=== PATIENT | female | born 1970 | race Caucasian/White ===

== ENCOUNTER 2017-01-30 12:38 | Emergency (ER) | payer OTHER, BC ==
--- NOTE | 2017-01-30 12:51 | PDOC ---
Attending Attestation - Resident Resident Name: Petros Jeter - ED Attending Attestation I have performed the following: I have examined & evaluated the patient, The case was reviewed & discussed with the resident, I agree w/resident's findings & plan, Exceptions are as noted
[2017-01-30 13:03] VITALS: BP 141/68; PULSE 78; TEMP 98.6; BMI 23.6
[2017-01-30] MEDS ORDERED: hydrOXYzine PAMOATE 25 MG CAPSULE (FP) PO ONE ×2 (13:13→13:16)
[2017-01-30] MEDS ORDERED: KETOROLAC TROMETHAMINE 60 MG/2 ML VIAL IM ONE (13:13)
[2017-01-30] MEDS ORDERED: KETOROLAC TROMETHAMINE 60 MG/2 ML VIAL ONE (13:15)
--- NOTE | 2017-01-30 13:17 | PDOC ---
History of Present Illness - General Chief Complaint: Pain, Acute Stated Complaint: BACK PAIN Time Seen by Provider: 01/30/17 12:57 - History of Present Illness Initial Comments: 01/30/17 13:53 Chief complaint: Low back pain History of present illness: Patient strained her back several days ago assisting a patient at work. Minimal pain at the time, but over the ensuing few days has had increased pain and stiffness in the low back. Review of systems: No radiation of pain to the legs. No distal numbness tingling pain or weakness of the lower extremities. No bowel or bladder dysfunction. Past medical history: No history of back pain or injury. Currently healthy without active medical or surgical problems, on no medications other than ibuprofen for the current injury Social/family history no tobacco alcohol or drugs. Stable home and family. No unusual stress Physical exam: Alert and oriented well-developed well-nourished, comfortable with recumbency, pain and limited mobility due to back injury, however cheerful and cooperative Afebrile, vital signs normal HEENT clear Neck without tenderness or deformity, full range of motion without pain Chest clear CV regular without murmur rub or gallop Abdomen benign No CVAT LS spine: No point tenderness, deformity, or inflammation over the lumbosacral spine. There is maintenance of the normal lumbar lordosis. Straight leg raising is negative. There are no distal sensory or motor deficits. Pulses are full Impression: Low back strain, gradual inflammation, no sign of neurological impairment Plan: Symptomatic treatment rest and follow-up primary physician and back specialist as necessary. Past History - Past Medical History Allergies/Adverse Reactions: Allergies Allergy/AdvReac Type Severity Reaction Status Date / Time codeine [Codeine] Allergy Intermediate Hives Verified 01/30/17 12:40 Home Medications: Ambulatory Orders Hydroxyzine Pamoate [Vistaril -] 25 - 50 mg PO TID PRN #25 capsule 01/30/17 Ketorolac Tromethamine [Toradol] 10 mg PO Q6H #20 tablet 01/30/17 Anemia: No Asthma: No Cancer: No Cardiac Disorders: No CVA: No COPD: No CHF: No Dementia: No Diabetes: No GI Disorders: No Disorders: No HTN: No Hypercholesterolemia: No Liver Disease: No Suicide Attempt (Hx): No Seizures: No Thyroid Disease: No Other medical history: DENIES - Reproductive History Is Patient Now?: No (#): 2 Para: 2 - Immunization History Immunization Up to Date: Yes - Psycho/Social/Smoking Cessation Hx Anxiety: No Suicidal Ideation: No Smoking Status: No Smoking History: Never smoked Have you smoked in the past 12 months: No Number of Cigarettes Smoked Daily: 0 Information on smoking cessation initiated: No Hx Alcohol Use: No Drug/Substance Use Hx: No Substance Use Type: None Hx Substance Use Treatment: No *Physical Exam - Vital Signs Last Vital Signs Temp Pulse Resp BP Pulse Ox 98.6 F 78 16 141/68 99 01/30/17 12:40 01/30/17 12:40 01/30/17 12:40 01/30/17 12:40 01/30/17 12:40 Medical Decision Making - Medical Decision Making 01/30/17 13:52 Patient's pain is much improved. She is more mobile, ambulating adequately. Discharged with instructions with family member to follow-up as directed. *DC/Admit/Observation/Transfer Diagnosis at time of Disposition: Strain of muscle, fascia and tendon of lower back, initial encounter - Discharge Dispostion Disposition: HOME Condition at time of disposition: Improved Admit: No - Prescriptions Prescriptions: Ketorolac Tromethamine [Toradol] 10 mg PO Q6H #20 tablet Hydroxyzine Pamoate [Vistaril -] 25 - 50 mg PO TID PRN #25 capsule PRN Reason: pain, spasm, muscle tension - Referrals Referrals: Quang Cabrera MD [Staff Physician] - 1 week - Patient Instructions Printed Discharge Instructions: DI for Low Back Pain Additional Instructions: Avoid sitting, bending, and lifting. Gentle stretching and limited walking is recommended. See back specialist if no improvement in one week as directed. - Post Discharge Activity Work/School Note: Back to Work
== END 2017-01-30 14:32 | disposition home or self-care (01) ==
LOC: FER 12:38
PROC: 3E0233Z Introduction of Anti-inflammatory into Muscle, Percutaneous Approach (ICD-10-PCS; principal; 2017-01-30)
DX: S39.012A Strain of muscle, fascia and tendon of lower back, initial encounter (principal); X58.XXXA Exposure to other specified factors, initial encounter; Y93.89 Activity, other specified; Y92.89 Other specified places as the place of occurrence of the external cause; Y99.0 Civilian activity done for income or pay
CPT/HCPCS: 99283-25

== ENCOUNTER 2021-12-20 13:55 | Emergency (ER) | payer BC ==
[2021-12-20 14:03] VITALS: BP 143/87; PULSE 110; BMI 25.8
[2021-12-20] MEDS ORDERED: SODIUM CHLORIDE 0.9% 500 ML INFUS.BAG IV ONE (14:24)
[2021-12-20] MEDS ORDERED: KETOROLAC TROMETHAMINE 30 MG/1 ML VIAL IVPUSH ONE (14:24)
[2021-12-20] MEDS ORDERED: ACETAMINOPHEN 1000 MG/100 ML BAG IVPB ONE (14:26)
[2021-12-20] MEDS ORDERED: KETOROLAC TROMETHAMINE 30 MG/1 ML VIAL ONE (14:31)
[2021-12-20] MEDS ORDERED: ACETAMINOPHEN INJECTION 100 ML IVPB ONE (14:31)
[2021-12-20 15:19] LABS: EPI CELLS 15 /uL (0-25.1); HCG,QUALITATIVE URINE Negative; HYALINE CASTS 3 /uL (0-3.1); URINE APPEARANCE TURBID; URINE BACTERIA 4278 /uL (0-1359); URINE BILIRUBIN NEGATIVE (NEGATIVE); URINE COLOR YELLOW; URINE GLUCOSE (UA) NEGATIVE (NEGATIVE); URINE KETONE NEGATIVE (NEGATIVE); URINE LEUK ESTERASE 3+ (NEGATIVE); URINE NITRITE NEGATIVE (NEGATIVE); URINE PROTEIN 2+ (NEGATIVE); URINE RBC 102 /uL (0-23.9); URINE UROBILINOGEN 0.2 mg/dL (0.2-1.0); URINE WBC 6378 /uL (0-25.8)
[2021-12-20] MEDS ORDERED: ONDANSETRON 4 MG/2 ML VIAL IVPUSH ONE (15:33)
[2021-12-20] MEDS ORDERED: ONDANSETRON 4 MG/2 ML VIAL ONE (15:34)
[2021-12-20 15:44] LABS: BASO % 0.6 % (0-2.0); EOS % 0.1 % (0-4.5); HEMATOCRIT 36.8 % (32.4-45.2); HEMOGLOBIN 12.5 GM/dL (10.7-15.3); LYMPH % 8.5 % (8-40); MCH 29.7 pg (25.7-33.7); MCHC 33.9 g/dl (32.0-36.0); MEAN CELL VOLUME 87.7 fl (80-96); MEAN PLT VOLUME 7.4 fl (7.5-11.1); MONO % 7.9 % (3.8-10.2); NEUT % 82.9 % (42.8-82.8); PLATELET COUNT 247 10^3/uL (134-434); RDW 13.2 % (11.6-15.6); WHITE BLOOD COUNT 11.6 K/mm3 (4.0-10.0)
[2021-12-20 16:10] LABS: BLOOD UREA NITROGEN 12.3 mg/dL (7-18); CALCIUM 8.5 mg/dL (8.5-10.1)
[2021-12-20 16:11] LABS: ALBUMIN 3.7 g/dl (3.4-5.0)
[2021-12-20 16:14] LABS: CREATININE 0.9 mg/dL (0.55-1.3)
[2021-12-20 16:15] LABS: BILIRUBIN,TOTAL 0.8 mg/dL (0.2-1); TOT PROT 7.3 g/dl (6.4-8.2)
[2021-12-20] MEDS ORDERED: CEFTRIAXONE 2 GM-D5W BAG 2 GM/50 ML BAG IVPB ONE (16:18)
[2021-12-20] MEDS ORDERED: CEFTRIAXONE 2 GM/100 ML BAG IVPB ONE (16:21)
[2021-12-20 16:27] VITALS: TEMP 101.3
== END 2021-12-20 18:32 | disposition home or self-care (01) ==
LOC: JER 13:55
PROC: 3E0333Z Introduction of Anti-inflammatory into Peripheral Vein, Percutaneous Approach (ICD-10-PCS; principal; 2021-12-20)
PROC: 3E03329 Introduction of Other Anti-infective into Peripheral Vein, Percutaneous Approach (ICD-10-PCS; 2021-12-20)
PROC: 3E033GC Introduction of Other Therapeutic Substance into Peripheral Vein, Percutaneous Approach (ICD-10-PCS; 2021-12-20)
DX: N30.01 Acute cystitis with hematuria (principal)
CPT/HCPCS: 36415; 74177-TC; 80053; 81003; 84703; 85025; 87086; 87186; 99285-25; Q9967